=== PATIENT | female | born 1940 | race Caucasian/White ===

== ENCOUNTER 2016-12-10 04:34 | Emergency (ER) | payer OTHER ==
[~2016-12-10] VITALS: Ht 157.5 cm; Wt 58.0 kg
[2016-12-10 04:53] VITALS: BP 172/60; PULSE 75; RESP 20; O2SAT 97
[2016-12-10] MEDS ORDERED: SODIUM CHLOR 0.9% 1000 ML INJ 1,000 ML IV ONE (05:23)
[2016-12-10] MEDS ORDERED: SODIUM CHLORIDE 0.9% FLUSH 10 ML FLUSH IVF PRN (05:30)
[2016-12-10] MEDS ORDERED: MORPHINE SULFATE 4 MG/ML INJ IV PUSH ONE (05:30)
[2016-12-10] MEDS ORDERED: ONDANSETRON HCL 4 MG/2 ML VIAL IVP ONE (05:30)
--- NOTE | 2016-12-10 05:46 | RADRPT ---
EXAM DATE/TIME: 12/10/2016 05:35 [facility] COMPARISON: No previous studies available for comparison. INDICATIONS : Palpitations. MEDICAL HISTORY : None. SURGICAL HISTORY : None. ENCOUNTER: Initial ACUITY: 1 day PAIN SCORE: 5/10 LOCATION: Bilateral chest FINDINGS: A single view of the chest demonstrates the lungs to be symmetrically aerated without evidence of mas s, infiltrate or effusion. The cardiomediastinal contours are unremarkable. Osseous structures are intact. CONCLUSION: No acute cardiopulmonary disease demonstrated. Cuauhtemoc Peña MD on December 10, 2016 at 5:44 Board Certified Radiologist. This report was verified electronically.
[2016-12-10 05:48] LABS: BLOOD, URINE NEG (NEG); GLUCOSE,URINE NEG (NEG); KETONE, URINE NEG (NEG); NITRITE,URINE NEG (NEG); PH, URINE 7.5 (5.0-8.5)
[2016-12-10 05:57] LABS: AUTOMATED NEUTROPHIL # 6.5 TH/MM3 (1.8-7.7); BASOPHIL % 0.4 % (0.0-2.0); EOSINOPHIL # 0.1 TH/MM3 (0-0.4); EOSINOPHIL % 1.1 % (0.0-4.0); HEMATOCRIT 36.9 % (35.0-46.0); LYMPHOCYTE # 1.3 TH/MM3 (1.0-4.8); MEAN CELL VOLUME 87.2 FL (80.0-100.0); MEAN CORPUSCULAR HEMOGLOBIN 28.7 PG (27.0-34.0); MEAN CORPUSCULAR HGB CONC 32.9 % (32.0-36.0); NEUT % 78.5 % (16.0-70.0); PLATELET COUNT 194 TH/MM3 (150-450); RED BLOOD COUNT 4.23 MIL/MM3 (4.00-5.30); RED CELL DISTRIBUTION WIDTH 12.9 % (11.6-17.2); WHITE BLOOD COUNT 8.2 TH/MM3 (4.0-11.0)
--- NOTE | 2016-12-10 05:58 | PD ---
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 No hematemesis no coffee-ground emesis bilious emesis. Patient denies referred neck jaw back shoulder arm pain. Patient denies history of hypertension but checked her blood pressure home reportedly was elevated. Patient does have diabetes. Patient denies any unilateral upper extremity or lower extremity numbness tingling or weakness. Patient attempted to get up but was too dizzy. No visual change no loss of vision no filled loss " vision. No change in speech no confusion no facial droop. Patient had her spouse called 911. EMS reports the patient was able to walk to the stretcher she was found to be in sinus rhythm no neurologic focal findings was given one dose of Zofran 4 mg IV and blood sugar was 142. Patient states that she feels essentially unchanged. Patient reports that when she went to bed last night she feel well and went to bed around 10 PM. Patient's had no recent illness or fever. Patient does not report any dysuria frequency or urgency. Patient denies any trauma or injury. [facility] Past Medical History Narrative Medical Diabetes; no surgery; no tobacco use; nursing notes reviewed Diabetes: Yes Patient Takes Glucophage: Yes Tetanus Vaccination: Unknown Influenza Vaccination: No ?: Not Social History Alcohol Use: No Tobacco Use: No Substance Use: No Allergies-Medications (Allergen,Severity, Reaction): Coded Allergies: No Known Allergies (Verified Allergy, Unknown, 12/10/16) Reported Meds & Prescriptions Reported Meds & Active Scripts Active Reported Metformin (Metformin HCl) 500 Mg Tab 500 Mg PO BIDPC With meals Novolog Inj (Insulin Aspart) 1,000 Unit/10 Ml Vial 2-12 Units SQ ACHS Max dose at bedtime ( ) units; sugars less than 70,(0) units; sugars 150-199,(2) units; sugars 200-249,(4) units; sugars 250-299,(7) units; sugars 300-349,(10) units; sugars greater than 349,(12)units Tresiba Flextouch Pen Inj (Insulin Degludec Inj) 300 unit/3 ML Pen 1 Units SQ TID Narrative Medication Insulin Review of Systems Except as stated in HPI: all other systems reviewed are Neg General / Constitutional: No: Fever, Chills HENT: Positive: Vertigo, Lightheadedness, No: Headaches, Congestion Cardiovascular: Positive: Chest Pain or Discomfort, No: Palpitations, Diaphoresis Respiratory: No: Cough, Shortness of Breath, Wheezing Gastrointestinal: Positive: Nausea, Abdominal Pain, No: Vomiting, Diarrhea Genitourinary: No: Dysuria, Flank Pain Musculoskeletal: No: Myalgias, Arthralgias Skin: No Rash Neurologic: Positive: Weakness, Dizziness, No: Syncope, Focal Abnormalities, Coordination Problem, Headache, Change in Mentation, Slurred Speech, Paresthesia , Sensory Disturbance Psychiatric: No: Anxiety, Depression Hematologic/Lymphatic: No: Easy Bruising Physical Exam Narrative GENERAL: Well-developed well-nourished Persian-speaking female in no acute distress no respiratory distress GCS 15 SKIN: Warm and dry. HEAD: Atraumatic. Normocephalic. EYES: Pupils equal and round. Extraocular muscles intact. No scleral icterus. No injection or drainage. ENT: No nasal bleeding or discharge. Mucous membranes pink and moist. NECK: Trachea midline. No JVD. Supple. CARDIOVASCULAR: Regular rate and rhythm. RESPIRATORY: No accessory muscle use. Clear to auscultation. Breath sounds equal bilaterally. GASTROINTESTINAL: Abdomen soft, non-tender, nondistended. Hepatic and splenic margins not palpable. MUSCULOSKELETAL: Extremities without clubbing, cyanosis, or edema. No obvious deformities. NEUROLOGICAL: Awake and alert. No obvious cranial nerve deficits. Motor grossly within normal limits. Five out of 5 muscle strength in the arms and legs. No pronator drift. No limb ataxia. Sensory deficit. Normal speech. PSYCHIATRIC: Appropriate mood and affect; insight and judgment normal. Data Data Last Documented VS Vital Signs Date Time Temp Pulse Resp B/P (MAP) Pulse Ox O2 Delivery O2 Flow Rate FiO2 12/10/16 07:11 20 12/10/16 06:43 83 153/76 (101) 97 Orders Orders Electrocardiogram (12/10/16 05:23) Complete Blood Count With Diff (12/10/16 05:23) Comprehensive Metabolic Panel (12/10/16 05:23) Magnesium (Mg) (12/10/16 05:23) Ckmb (Isoenzyme) Profile (12/10/16 05:23) Troponin I (12/10/16 05:23) Act Partial Throm Time (Ptt) (12/10/16 05:23) Prothrombin Time / Inr (Pt) (12/10/16 05:23) Urinalysis - C+S If Indicated (12/10/16 05:23) Chest, Single Ap (12/10/16 05:23) Ct Brain W/O Iv Contrast(Rout) (12/10/16 05:23) Blood Glucose (12/10/16 05:23) Ecg Monitoring (12/10/16 05:23) Iv Access Insert/Monitor (12/10/16 05:23) Oximetry (12/10/16 05:23) Ondansetron Inj (Zofran Inj) (12/10/16 05:30) Sodium Chloride 0.9% Flush (Ns Flush) (12/10/16 05:30) Sodium Chlor 0.9% 1000 Ml Inj (Ns 1000 M (12/10/16 05:23) Morphine Inj (Morphine Inj) (12/10/16 05:30) Ct Abd/Pel W Iv Contrast(Rout) (12/10/16 ) Metoclopramide Inj (Reglan Inj) (12/10/16 06:30) Iohexol 350 Inj (Omnipaque 350 Inj) (12/10/16 06:50) Labs Laboratory Tests Test 12/10/16 05:25 White Blood Count 8.2 TH/MM3 Red Blood Count 4.23 MIL/MM3 Hemoglobin 12.1 GM/DL Hematocrit 36.9 % Mean Corpuscular Volume 87.2 FL Mean Corpuscular Hemoglobin 28.7 PG Mean Corpuscular Hemoglobin Concent 32.9 % Red Cell Distribution Width 12.9 % Platelet Count 194 TH/MM3 Mean Platelet Volume 8.6 FL Neutrophils (%) (Auto) 78.5 % Lymphocytes (%) (Auto) 16.0 % Monocytes (%) (Auto) 4.0 % Eosinophils (%) (Auto) 1.1 % Basophils (%) (Auto) 0.4 % Neutrophils # (Auto) 6.5 TH/MM3 Lymphocytes # (Auto) 1.3 TH/MM3 Monocytes # (Auto) 0.3 TH/MM3 Eosinophils # (Auto) 0.1 TH/MM3 Basophils # (Auto) 0.0 TH/MM3 CBC Comment DIFF FINAL Differential Comment Prothrombin Time 10.7 SEC Prothromb Time International Ratio 1.0 RATIO Activated Partial Thromboplast Time 26.9 SEC Urine Color STRAW Urine Turbidity CLEAR Urine pH 7.5 Urine Specific [place] 1.014 Urine Protein NEG mg/dL Urine Glucose (UA) NEG mg/dL Urine Ketones NEG mg/dL Urine Occult Blood NEG Urine Nitrite NEG Urine Bilirubin NEG Urine Leukocyte Esterase NEG Urine RBC 0-3 /hpf Urine WBC 0-2 /hpf Urine Squamous Epithelial Cells 0-5 /hpf Microscopic Urinalysis Comment CULT NOT INDICATED Blood Urea Nitrogen 18 MG/DL Creatinine 1.00 MG/DL Random Glucose 193 MG/DL Total Protein 7.4 GM/DL Albumin 3.7 GM/DL Calcium Level 9.3 MG/DL Magnesium Level 2.0 MG/DL Alkaline Phosphatase 60 U/L Aspartate Amino Transf (AST/SGOT) 41 U/L Alanine Aminotransferase (ALT/SGPT) 77 U/L Total Bilirubin 0.4 MG/DL Sodium Level 140 MEQ/L Potassium Level 3.6 MEQ/L Chloride Level 105 MEQ/L Carbon Dioxide Level 27.9 MEQ/L Anion Gap 7 MEQ/L Estimat Glomerular Filtration Rate 54 ML/MIN Total Creatine Kinase 69 U/L Troponin I LESS THAN 0.02 NG/ML MDM Medical Decision Making Medical Screen Exam Complete: Yes Emergency Medical Condition: Yes Medical Record Reviewed: Yes Interpretation(s) EKG: normal sinus rhythm rate [address] elevation or injury pattern change noted left axis deviation Differential Diagnosis Dizziness, vertigo, anemia, arrhythmia, ACS, OR, TIA, CVA, gastritis, viral syndrome, abdominal aortic aneurysm, dissection, Narrative Course 76 old female with dizziness subsequently developing nausea and vomiting and then noting epigastric pain and chest discomfort. History of diabetes. No prior history of CAD hypertension dyslipidemia TIA CVA or tobaccoism. History obtained with patient assisted japanese interpreter using [employer]. Patient given Zofran 4 mg IV morphine 2 mg IV EKG performed shows sinus rhythm rate 77 after axis deviation no acute ST elevation or injury pattern change or ectopy noted Labs and CT abdomen and pelvis pending care signed over to Sada Ray MD Dec 10, 2016 05:58
[2016-12-10 06:08] LABS: CHLORIDE 105 MEQ/L (98-107); POTASSIUM 3.6 MEQ/L (3.5-5.1); SODIUM (NA) 140 MEQ/L (136-145)
[2016-12-10 06:13] LABS: ANION GAP 7 MEQ/L (5-15); BICARBONATE 27.9 MEQ/L (21.0-32.0); BLOOD UREA NITROGEN 18 MG/DL (7-18)
[2016-12-10 06:16] LABS: ALT (GPT) 77 U/L (10-53); AST (GOT) 41 U/L (15-37); GLOMERULAR FILTRATION RATE 54 ML/MIN (>89)
[2016-12-10 06:17] LABS: APTT (PATIENT) 26.9 SEC (24.3-30.1); PROTHROMBIN TIME - PATIENT 10.7 SEC (9.8-11.6)
[2016-12-10 06:18] LABS: TOTAL BILIRUBIN ADULT 0.4 MG/DL (0.2-1.0)
[2016-12-10 06:19] LABS: ALKALINE PHOSPHATASE 60 U/L (45-117)
[2016-12-10 06:20] LABS: RBC, URINE 0-3 /hpf (0-3); URINE COLOR STRAW (YELLW/STRAW); WBC, URINE 0-2 /hpf (0-5)
[2016-12-10 06:21] LABS: COMMENT (UR) CULT NOT INDICATED; CULTURE IF INDICATED CULT NOT INDICATED; SQUAMOUS EPITHELIAL CELL URINE 0-5 /hpf (0-5)
[2016-12-10] MEDS ORDERED: METOCLOPRAMIDE HCL 10 MG/2 ML VIAL IV PUSH ONE (06:30)
[2016-12-10 06:35] LABS: CREATINE KINASE 69 U/L (26-192)
[2016-12-10] MEDS ORDERED: INSU1INJ14 SQ (06:38)
[2016-12-10] MEDS ORDERED: METF500T PO (06:38)
[2016-12-10] MEDS ORDERED: NOVOLOGP2 SQ (06:38)
[2016-12-10 06:41] LABS: HEMO FLAGS DIFF FINAL
[2016-12-10 06:43] VITALS: BP 153/76; PULSE 83; RESP 20; O2SAT 97
[2016-12-10] MEDS ORDERED: IOHEXOL 350 MG/ML 10 ML VIAL (for RAD DIAG) IVCONTRAST ONE (06:50)
[2016-12-10 07:00] VITALS: BP 97/57; PULSE 51; RESP 18; O2SAT 100
--- NOTE | 2016-12-10 07:08 | RADRPT ---
EXAM DATE/TIME: 12/10/2016 06:32 [facility] COMPARISON: No previous studies available for comparison. INDICATIONS : Dizziness, nausea and vomiting. RADIATION DOSE: 60.55 CTDIvol (mGy) MEDICAL HISTORY : Diabetes mellitus type 2. Hypertension. SURGICAL HISTORY : None. ENCOUNTER: Initial ACUITY: 1 day PAIN SCALE: 0/10 LOCATION: cranial TECHNIQUE: Multiple contiguous axial images were obtained of the head. Using automated exposure control and adj ustment of the mA and/or kV according to patient size, radiation dose was kept as low as reasonably a chievable to obtain optimal diagnostic quality images. DICOM format image data is available electro nically for review and comparison. FINDINGS: CEREBRUM: There is mild cerebral atrophy. Ventricles are normal. No evidence of midline shift, mass lesion, he morrhage or acute infarction. No extra-axial fluid collections are seen. POSTERIOR FOSSA: The cerebellum and brainstem demonstrate no acute finding. The 4th ventricle is midline. The cerebe llopontine angle is unremarkable. EXTRACRANIAL: The visualized sinuses are clear. SKULL: The calvaria is intact. No evidence of skull fracture. CONCLUSION: No acute intracranial abnormality is identified. Cuauhtemoc Bartlett MD on December 10, 2016 at 7:04 Board Certified Radiologist. This report was verified electronically.
[2016-12-10 07:11] VITALS: RESP 20
--- NOTE | 2016-12-10 07:12 | RADRPT ---
EXAM DATE/TIME: 12/10/2016 06:39 [facility] COMPARISON: No previous studies available for comparison. INDICATIONS : Epigastric pain, nausea and vomiting. IV CONTRAST: 80 cc Omnipaque 350 (iohexol) IV ORAL CONTRAST: No oral contrast ingested. RADIATION DOSE: 6.50 CTDIvol (mGy) MEDICAL HISTORY : Diabetes mellitus type 2. Hypertension. SURGICAL HISTORY : None. ENCOUNTER: Initial ACUITY: 1 day PAIN SCALE: 5/10 LOCATION: Epigastric. TECHNIQUE: Volumetric scanning of the abdomen and pelvis was performed. Using automated exposure control and ad justment of the mA and/or kV according to patient size, radiation dose was kept as low as reasonably achievable to obtain optimal diagnostic quality images. DICOM format image data is available electro nically for review and comparison. FINDINGS: LOWER LUNGS: The visualized lower lungs are clear. LIVER: Homogeneous density without lesion. There is no dilation of the biliary tree. No calcified gallston es. SPLEEN: Normal size without lesion. PANCREAS: Within normal limits. KIDNEYS: Normal in size and shape. There is no mass, stone or hydronephrosis. ADRENAL GLANDS: Within normal limits. VASCULAR: There is no aortic aneurysm. There is moderate severity atherosclerotic disease. BOWEL/MESENTERY: The stomach, small bowel, and colon demonstrate no acute abnormality. There is no free intraperitone al air or fluid. A small hiatal hernia is present. ABDOMINAL WALL: Within normal limits. RETROPERITONEUM: There is no lymphadenopathy. BLADDER: No wall thickening or mass. REPRODUCTIVE: There are coarse calcifications within the uterus representing calcified fibroids. No adnexal abnorma lity is seen. INGUINAL: There is no lymphadenopathy or hernia. MUSCULOSKELETAL: There are degenerative changes of the lumbar spine. CONCLUSION: 1. No acute abnormality is identified within the abdomen or pelvis to explain the clinical symptoms. 2. Nonacute findings include a small hiatal hernia, moderate severity atherosclerotic disease, and sm all calcified uterine fibroids. Cuauhtemoc Bartlett MD on December 10, 2016 at 7:06 Board Certified Radiologist. This report was verified electronically.
[2016-12-10] MEDS ORDERED: DIAZEPAM 5 MG TAB PO ONE (08:15)
[2016-12-10] MEDS ORDERED: MECL-62 PO (08:19)
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
[2016-12-10] MEDS ORDERED: MECLIZINE HCL 25 MG TAB PO SCH (08:30)
[2016-12-10 09:09] VITALS: BP 127/78
--- NOTE | 2016-12-10 17:53 | EKG ---
Date Performed: 12/10/2016 Time Performed: 05:46:47 PTAGE: 76 years EKG: Sinus rhythm LEFT AXIS DEVIATION NONSPECIFIC T-WAVE ABNORMALITY ABNORMAL ECG NO PREVIOUS TRACING DOCTOR: Bienvenido Smilye Interpretating Date/Time 12/10/2016 17:51:28
== END 2016-12-10 09:11 | disposition home or self-care (01) ==
LOC: PHED 04:34
DX: R42 Dizziness and giddiness (principal); R11.2 Nausea with vomiting, unspecified; R07.9 Chest pain, unspecified
CPT/HCPCS: 70450; 71010; 74177; 80053; 81001; 82550; 83735; 84484; 85025; 85610; 85730; 93005; 96361; 96374; 96375; 99285; J2270; J2405; J2765; J7030; Q9967